=== PATIENT | female | born 1955 | race Caucasian/White ===

== ENCOUNTER → 2018-04-10 | Emergency (ER) | payer OTHER ==
[~2018-04-10] VITALS: Ht 157.5 cm; Wt 65.8 kg
== END | disposition home or self-care (01) ==
LOC: ER 11:21
DX: M94.0 Chondrocostal junction syndrome [Tietze] (principal); R07.89 Other chest pain

== ENCOUNTER 2022-11-29 11:26 | Emergency (ER) | payer OTHER ==
[~2022-11-29] VITALS: Ht 157.5 cm; Wt 63.5 kg
[2022-11-29] MEDS ORDERED: ADVIL DUAL ACT1 EACH PO (17:29)
== END 2022-11-29 17:48 | disposition home or self-care (01) ==
LOC: ER 11:26
DX: M25.512 Pain in left shoulder (principal)